=== PATIENT | female | born 1975 | race Caucasian/White ===

== ENCOUNTER 2016-07-31 05:28 | Emergency (ER) | payer OTHER ==
[2016-07-31] MEDS ORDERED: Dexamethasone IV* 4 MG/ML 5 ML VIAL (20 MG) IVPB ONE (06:56)
[2016-07-31] MEDS ORDERED: Orphenadrine Citrate IV* 30 MG/ML 2 ML VIAL IV ONE (06:57)
[2016-07-31] MEDS ORDERED: HYDROcodone/ACETAMIN 5-325 MG* 1 TAB PO ONE (06:57)
--- NOTE | 2016-07-31 07:04 | ED ---
Back Pain - HPI Summary HPI Summary: 41F presents with acute on chronic back that got worst today. She states has been getting gradual worst and today she was carrying some lights and she stated his pain became unbearable. She states she was unable to climb the stairs due to the pain. She states that she had surgery 4 years ago for a laminectomy. She states she is seeing Dr Falcon who is having her do PT which she states two weeks ago. She states the pain she is currently having is the pain that she has had before her surgery. She states that if she elevated her foot in the air it does numb. She denies any loss of bowel or bladder or saddle anaesthesia. She states that she has been alternating Tylenol and ibuprofen for pain. - History of Current Complaint Chief Complaint: EDBackInjuryPain Stated Complaint: BACK PAIN Time Seen by Provider: 07/31/16 06:33 Pain Intensity: 9 - Allergies/Home Medications Allergies/Adverse Reactions: Allergies Allergy/AdvReac Type Severity Reaction Status Date / Time No Known Allergies Allergy Verified 12/21/14 07:04 PMH/Surg Hx/FS Hx/Imm Hx Endocrine/Hematology History: Denies: Hx Diabetes Cardiovascular History: Denies: Hx Hypertension, Hx Pacemaker/ICD, Other Cardiovascular Problems/ Disorders Respiratory History: Reports: Hx Chronic Bronchitis Denies: Hx Asthma, Other Respiratory Problems/Disorders GI History: Reports: Hx Gastroesophageal Reflux Disease, Hx Ulcer Denies: Other GI Disorders History: Denies: Hx Dialysis, Hx Renal Disease Musculoskeletal History: Reports: Hx Back Problems - herniated disc Sensory History: Reports: Hx Contacts or Glasses Denies: Hx Hearing Aid Opthamlomology History: Reports: Hx Contacts or Glasses Neurological History: Reports: Hx Migraine - 2 PER MONTH, Other Neuro Impairments/Disorders - PAIN CLINIC PT Psychiatric History: Denies: Hx Panic Disorder - Cancer History Hx Chemotherapy: No Hx Radiation Therapy: No - Surgical History Surgery Procedure, Year, and Place: HYSTERECTOMY, 2013, [facility] , IVF X 4 ,LSP SURGERY L5-S1 H[place]ILAM[place]OTOMY [place] [facility] [place]PLORITORY TO OVARY AND FILLOPIAN TUBES. WIDOM TEETH Hx Anesthesia Reactions: Yes - BP DROPPED, [place] Infectious Disease History: No Infectious Disease History: Denies: Traveled Outside the [place] in Last 30 Days - Family History Known Family History: Positive: Hypertension - Social History Alcohol Use: None Substance Use Type: Reports: None Smoking Status (MU): Heavy Every Day Tobacco Smoker Type: Cigarettes Amount Used/How Often: PACK A DAY Have You Smoked in the Last Year: Yes Review of Systems Negative: Fever Negative: Chest Pain Negative: Shortness Of Breath Positive: Myalgia - back pain All Other Systems Reviewed And Are Negative: Yes Physical Exam Triage Information Reviewed: Yes Vital Signs On Initial Exam: Initial Vitals Temp Pulse Resp BP Pulse Ox 98.0 F 81 16 136/83 100 07/31/16 05:29 07/31/16 05:29 07/31/16 05:29 07/31/16 05:29 07/31/16 05:29 Vital Signs Reviewed: Yes Appearance: Positive: Well-Appearing Skin: Positive: Warm, Dry Head/Face: Positive: Normal Head/Face Inspection Eyes: Positive: Normal, Conjunctiva Clear Respiratory/Lung Sounds: Positive: Clear to Auscultation, Breath Sounds Present Cardiovascular: Positive: Normal, RRR Musculoskeletal: Positive: Limited @ - back due to pain, Other - midline tenderness of lower back, positive SLR Diagnostics - Vital Signs Vital Signs Temp Pulse Resp BP Pulse Ox 07/31/16 05:33 98.0 F 81 16 136/83 100 07/31/16 05:29 98.0 F 81 16 136/83 100 - Laboratory Lab Statement: Any lab studies that have been ordered have been reviewed, and results considered in the medical decision making process. Re-Evaluation - Re-Evaluation First Eval Re-Evaluation Time: 08:29 Change: Unchanged Comment: pain is still the same Back Pain Course/Dx - Course Course Of Treatment: 41F presents with acute on chronic back pain. nothing is different about this pain execpt for intenstity. denies any injury. occasionally has pain down legs. only numbness with leg extension. is currently seeing dr Falcon and doing PT for this pain. on exam has midline tenderness with pos SLR. discussed imaging and patient states would only like MRI which unable to do in ER setting. gave toradol, dexamethasone, norflex, and norco without relief. after dose of morphine and dilaudid patient was able to ambulate out of ED. has MRI set up with dr Falcon. sent home with prednisone , robaxin, and lidocaine patch. patient understands and agrees with plan - Diagnoses Differential Diagnosis/HQI/PQRI: Positive: Herniated Disc, Strain, Sprain Provider Diagnoses: Back pain Discharge - Discharge Plan Condition: Stable Disposition: HOME Prescriptions: Lidocaine PATCH 5%* [Lidoderm 5% Patch*] 1 patch TRANSDERM DAILY #5 patch Methocarbamol TAB* [Robaxin TAB*] 750 mg PO TID PRN #9 tab PRN Reason: Pain Methylprednisolone [Medrol Dosepak 4 MG*] 4 mg PO .SEE SUDHIR INSTRUCTION #1 packet Patient Education Materials: Back Pain (ED) Forms: *Work Release Referrals: No Primary Care Phys,NOPCP [Primary Care Provider] - Additional Instructions: Follow directions on package for Medrol pack Take muscle relaxers three times a day for 3 days Apply lidocaine patches to area for up to 12 hours in one 24 hour period Use ibuprofen or Tylenol for pain every 6 hours ice/heat area, move as much as possible Follow up with primary within 5 days Return to ED if unable to ambulate or develop any new or worsening symptoms
[2016-07-31] MEDS ORDERED: Ketorolac INJ* 30 MG/ML 1 ML VIAL IV PUSH ONE (08:05)
[2016-07-31] MEDS ORDERED: Ondansetron INJ* 2 MG/ML VIAL IV ONE (08:32)
[2016-07-31] MEDS ORDERED: Morphine INJ* 4 MG/ML 1 ML SYRINGE IV ONE (08:32)
[2016-07-31] MEDS ORDERED: HYDROmorphone* 1 MG/ML 1 ML SYR IV SLOW PU ONE (09:54)
[2016-07-31 10:56] VITALS: BP 150/86
== END 2016-07-31 10:59 | disposition home or self-care (01) ==
LOC: ED 05:28
DX: M54.9 Dorsalgia, unspecified (principal); F17.210 Nicotine dependence, cigarettes, uncomplicated; G89.29 Other chronic pain
CPT/HCPCS: 96374; 96375; 99284; J1170; J1885; J2270; J2360; J2405

== ENCOUNTER 2018-10-07 12:59 | Emergency (ER) | payer OTHER ==
[2018-10-07 13:35] LABS: ABS Basophils 0.1 10^3/ul (0-0.2); ABS Eosinophils 0.2 10^3/ul (0-0.6); ABS Lymphocytes 2.4 10^3/ul (1.0-4.8); ABS Monocytes 0.7 10^3/ul (0-0.8); ABS Neutrophils 7.6 10^3/ul (1.5-7.7); Eosinophil % 1.4 %; Hematocrit 43 % (35-47); Hemoglobin 14.7 g/dL (12.0-16.0); Mean Corpuscular HGB Conc 34 g/dL (31-36); Mean Corpuscular Hemoglobin 30 pg (27-31); Mean Corpuscular Volume 88 fL (80-97); Mean Platelet Volume 7.7 fL (7.4-10.4); Nucleated Red Blood Cells % 0.1; Platelet Count 356 10^3/uL (150-450); Red Blood Count 4.92 10^6 /uL (3.70-4.87); Red Cell Distribution Width 15 % (10-15)
[2018-10-07 13:57] LABS: INR 0.95 (0.82-1.09)
[2018-10-07 14:00] LABS: Albumin 4.1 g/dL (3.2-5.2); Albumin/Globulin Ratio 1.4 (1-3); BUN/Creatinine Ratio 11.8 (8-20); Calcium 9.5 mg/dL (8.6-10.3); EGFR African American 113.7 (>60); Total Bilirubin 0.5 mg/dL (0.2-1.0); Total Protein 7.1 g/dL (6.4-8.9)
[2018-10-07] MEDS ORDERED: Aspirin 81 mg CHEW TAB* 81 MG TAB.CHEW PO ONE (14:10)
[2018-10-07] MEDS ORDERED: Acetaminophen TAB* 325 MG PO ONE (14:10)
[2018-10-07] MEDS ORDERED: Nitroglycerin TAB 0.4 MG* 0.4 MG TAB SL ONE (14:10)
--- OUTSIDE RECORDS SUMMARY | 2018-10-07 14:44 | XMS REPORT | Continuity of Care Document ---
:1975 External Reference #:[id number] Author Name Rachael Wilkes CNM Address [address] [place] [address] Care Team Providers Name Role Phone Toyin Duffy Primary Care Physician Unavailable Payers Date Identification Numbers Payment Provider Subscriber Expires: 2013 Policy Number: [id number] [employer] Samira Watson Group Number: [id number] [address] PayID: [id number] [place] [address] Effective: 2013 Policy Number: [id number] [employer] Ppo Samira Watson Group Number: [id number] [address] PayID: [id number] [place] [address] Family History Date Family Member(s) Observation Comments Father due to Throat Cancer () Mother Osteoporosis Mother Migraine Number of Children 2 First Son A&W First Daughter A&W Number of Siblings Siblings: 1 Order Patient is the oldest of two children First Brother A&W Paternal Grandfather due to Colon Cancer () Paternal Grandmother due to Old Age () Maternal Grandfather due to Auto Accident () Maternal Grandmother due to Alzheimer's Disease () Social History Type Date Description Comments Sex Unknown Education Highest level of education completed is 12th grade Marital Status Patient is Living Situation Lives with spouse, son and daughter Diet Diet is healthy and well balanced 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 Cigarette Use Regularly smokes cigarettes Alcohol Rarely drinks alcohol Tobacco Use Start: Unknown Patient is a current smoker, smokes every day Drug Use Denies drug use Smoking Status Reviewed: 09/18/18 Patient is a current smoker, smokes every day Daily Caffeine Drinks on average 5 cups of coffee a day Exercise Type/Frequency Does not exercise currently Current Seat Belt/Car Seat Always uses a seat belt Currently Active The patient is currently sexually active Contraceptive Methods Does not currently use any method of control STD's Has high risk HPV Allergies, Adverse Reactions, Alerts Description No Known Drug Allergies Medications Active Medications SIG Qnty Indications Ordering Date Provider Macrobid 1 tab by mouth 14caps Rachael Wilkes, 09/18/2018 100mg Capsules twice a day, CNM finish entire course of treatment Bactrim DS 1 by mouth twice a 6tabs UTE Thurston 07/16/2018 800-160mg day Tablets Nexium 1 PO qd 30caps Teresa Estevez 07/15/2006 20mg Capsules Karlie Puente Cymbalta 1 po qd Unknown 90mg Zantac 75 Unknown Lexapro Unknown Eletriptan Unknown Hydrobromide Klonopin 1 twice a day as Unknown 0.5mg Tablets needed anxiety History Medications Metronidazole take one tab by 14tawily Schmidt, 06/24/2018 - 500mg Tablets mouth twice a 09/18/2018 day for 7 days Premarin take 1 tab by 90tawily Schmidt, 06/17/2018 - 0.625mg Tablets mouth every day 09/18/2018 Metrogel-Vaginal 1 applicator 70gm Malinda Meade, 06/04/2018 - 0.75% Gel every night at [facility] 06/11/2018 bedtime x 5 days Keflex 1 by mouth two 14caps Harper Huff, 05/03/2018 - 500mg Capsules times a day [facility] 05/10/2018 Macrobid 1 by mouth twice 10caps R30.0 Harper Huff, 04/29/2018 - 100mg Capsules a day [facility]- 05/03/2018 Medroxyprogesterone take 1 tablet by 30tawily Scmhidt 06/15/2013 - Acetate mouth once daily 07/13/2013 10mg Tablets for 10 days Flagyl 1 po bid x 7days 14tawily Gan 05/14/2010 - 500mg Tablets CHARLINE Burnett 05/19/2012 Lo/Ovral-28 28 day cycle 28tawily Gan 05/14/2010 - 0.3-30mg-mcg Tablets CHARLINE Burnett 05/19/2012 Prometrium 1 PO QHS 90caps Freida 04/25/2008 - 100mg Capsules MD Dimas 05/14/2010 Prozac 1 po qd 60caps Teresa Estevez 08/12/2006 - 20mg Capsules Karlie Puente 05/14/2010 Protonix 1 po qd 30tabs Freida 07/10/2006 - 20mg Tablets MD Dimas 07/15/2006 Wellbutrin SR 1 PO qd X3 Then 60tabs 296.21 Joseluis Gore 04/11/2006 - 150mg Tablets bid Karlie Kerr 11/03/2006 Tylenol W/ Codeine #3 1- PO Q 4-6 HRS 24tabs Harper Huff 03/19/2006 - 300mg;30 mg prn Pain ANP-C 11/03/2006 Tablets Zantac 1 PO bid prn 60tabs Freida 03/19/2006 - 150mg Tablets MD Dimas 11/03/2006 Terazol 7 1 applicator qhs 45gm 616.10 Joseluis Gore 11/19/2004 - 0.4% Cream x7 Karlie Kerr 03/19/2006 Macrobid 1 po bid x 7 14caps Pierce Thurman 10/09/2004 - 100mg Capsules days C.N.M. 03/19/2006 Pyridium 1 tid prn 6tabs Pierce Thurman 10/09/2004 - 200mg Tablets Bladder Pain C.N.M. 03/19/2006 Maxalt Unknown - 04/25/2008 Topamax Unknown - 05/19/2012 Vicodin Unknown - 05/19/2012 Wellbutrin Unknown - Tablets 05/14/2010 Xanax Unknown - Tablets 05/19/2012 Oxycodone HCL 1 po q4hrs prn 12caps Unknown - 5mg Capsules migrane pain 04/29/2018 Vital Signs Date Vital Result Comment 09/18/2018 1:21pm BP Systolic 114 mmHg BP Diastolic 66 mmHg Body Temperature 98.0 F Height 61.5 inches 5'1.50" Weight 161.00 lb BMI (Body Mass Index) 29.9 kg/m2 Last Menstrual Period [id number] 2 Parity 2 06/17/2018 2:53pm BP Systolic 128 mmHg BP Diastolic 80 mmHg Height 61.5 inches 5'1.50" Weight 164.00 lb BMI (Body Mass Index) 30.5 kg/m2 2 Parity 2 04/29/2018 12:37pm BP Systolic 140 mmHg BP Diastolic 88 mmHg Height 61.5 inches 5'1.50" Weight 164.00 lb BMI (Body Mass Index) 30.5 kg/m2 Last Menstrual Period 5099130 2 Parity 2 07/19/2016 12:57pm BP Systolic 134 mmHg BP Diastolic 90 mmHg Height 61.5 inches 5'1.50" Weight 187.00 lb BMI (Body Mass Index) 34.8 kg/m2 2 Parity 2 06/25/2013 3:16pm BP Systolic 138 mmHg BP Diastolic 90 mmHg Weight 186.00 lb 2 Parity 2 06/15/2013 12:57pm BP Systolic 130 mmHg BP Diastolic 88 mmHg Height 61 inches 5'1" Weight 185.00 lb BMI (Body Mass Index) 35.0 kg/m2 2 Parity 2 05/19/2013 12:57pm BP Systolic 136 mmHg BP Diastolic 88 mmHg Height 61 inches 5'1" Weight 184.00 lb BMI (Body Mass Index) 34.8 kg/m2 2 Parity 2 06/18/2010 1:53pm BP Systolic 118 mmHg BP Diastolic 68 mmHg Height 61 inches 5'1" Weight 181.00 lb BMI (Body Mass Index) 34.2 kg/m2 05/14/2010 1:00pm BP Systolic 116 mmHg BP Diastolic 66 mmHg Height 61 inches 5'1" Weight 181.00 lb BMI (Body Mass Index) 34.2 kg/m2 02/09/2009 12:43pm BP Systolic 114 mmHg BP Diastolic 70 mmHg Height 61 inches 5'1" Weight 181.00 lb BMI (Body Mass Index) 34.2 kg/m2 Last Menstrual Period [id number] 01/09/2009 1:09pm BP Systolic 124 mmHg BP Diastolic 74 mmHg Height 61 inches 5'1" Weight 183.00 lb BMI (Body Mass Index) 34.6 kg/m2 Last Menstrual Period 0 2 Months Ago 04/25/2008 10:50am BP Systolic 110 mmHg BP Diastolic 70 mmHg Height 61 inches 5'1" Weight 178.00 lb BMI (Body Mass Index) 33.6 kg/m2 2 Parity 2 11/03/2006 2:59pm BP Systolic 100 mmHg BP Diastolic 60 mmHg Height 61 inches 5'1" Weight 163.00 lb BMI (Body Mass Index) 30.8 kg/m2 03/19/2006 1:25pm BP Systolic 118 mmHg BP Diastolic 78 mmHg Height 61 inches 5'1" Weight 160.00 lb BMI (Body Mass Index) 30.2 kg/m2 Last Menstrual Period [id number] Ivf KAE: 09-28-06 Results Test Date Facility Test Result H/L Range Note Laboratory test 06/17/19 [facility] Gardnerella/Y SEE RESULT 1 finding [address] [place] [address] east: Vaginal BELOW [phone] Dna Urine Culture And 04/29/19 [facility] Urine Culture SEE RESULT 2 Sensitivities [address] [place] [address] BELOW [phone] HIV 1/2 AB 04/29/19 [facility] HIV 1 2 Nonreactive Nonreactive 3 Evaluation [address] [place] [address] Antibody [phone] Laboratory test 04/29/19 [facility] Hepatitis B Nonreactive Nonreactive 4 finding [address] [place] [address] Surface Ag [phone] Hepatitis C 04/29/19 [facility] HCV Index < 0.0 Index Antibody [address] [place] [address] [phone] Hepatitis C Antibody Nonreactive Nonreactive Laboratory 04/29/2018 [facility] Syphillis Igg Nonreactive Nonreactive 5 [place] [address] W/Reflex RPR [phone] GC/Chlamydia 04/29/2018 [facility] Chlamydia Negative [place] [address] trachomatis [phone] Rna Neisseria gonorrhoeae (GC) Rna Negative Negative Laboratory test 04/29/2018 [facility] Cytology SEE RESULT LGSIL,+HPV [address] [place] [address] BELOW [phone] Laboratory test 07/19/2016 [facility] Gardnerella/Y SEE RESULT 7 [place] [address] east: Vaginal BELOW [phone] Dna CBC Auto Diff 07/13/2013 [facility] White Blood 10.3 4.8- 10.8 [place] [address] Count 10^3/uL [phone] Red Blood Count 4.69 10^6/uL 4.0-5.4 Hemoglobin 13.2 g/dL 12.0-16.0 Hematocrit 39 % 35-47 Mean Corpuscular Volume 84 fL 80-97 Mean Corpuscular Hemoglobin 28 pg 27-31 Mean Corpuscular HGB Conc 33 g/dL 31-36 Red Cell Distribution Width 15 % 10.5-15 Platelet Count 337 10^3/uL 150-450 Mean Platelet Volume 8 um3 7.4-10.4 Abs Neutrophils 6.8 10^3/uL 1.5-7.7 Abs Lymphocytes 2.5 10^3/uL 1.0-4.8 Abs Monocytes 0.7 10^3/uL 0-0.8 Abs Eosinophils 0.2 10^3/uL 0-0.6 Abs Basophils 0.1 10^3/uL 0-0.2 Abs Nucleated RBC 0 10^3/uL Granulocyte % 65.6 % 38-83 Lymphocyte % 24.0 % Low 25-47 Monocyte % 7.2 % 1-9 Eosinophil % 2.1 % 0-6 Basophil % 1.1 % 0-2 Nucleated Red Blood Cells % 0 Laboratory test 06/25/2013 [facility] Surgical Pathology RUN DATE: 8 [place] [address] 06/29/ [phone] <SEE NOTE> Laboratory test 06/15/2013 [facility] Beta HCG < 0.60 0.0- 5.0 9 [place] [address] Quantitative IU/mL [phone] Thyroid 06/15/2013 [facility] Thyroid Stim 2.9 mIU/L 0.3-5.0 10 [place] [address] Hormone Parke [phone] Laboratory test 05/19/2013 [facility] Cytology RUN DATE: ASCUS [address] [place] [address] 05/20/ [phone] <SEE NOTE> HPV High Risk 05/19/2013 [facility] Human ECTO/[place] [address] Papillomavirus [phone] Source HPV High Risk Type 16, PCR Negative Negative HPV High Risk Type 18, PCR Negative Negative HPV Other Risk types Negative Negative 12 Genital 05/14/2010 [facility] Genital PRESUMPTIVE AMANDEEP 13 [place] [address] Culture <SEE NOTE> [phone] Genital Culture NORMAL MOE 14 GC/Chlamydia Aptima 05/14/2010 [facility] Chlamydia N [address] [place] [address] Trachomatis Rna [phone] Laboratory test 05/14/2010 [facility] Cytology -------- [address] [place] [address] -------- [phone] <SEE NOTE> GC (N. Gonorrhoeae) Rna N 17 Laboratory test 02/09/2009 [facility] Cytology <SEE 18 [place] [address] NOTE> [phone] Laboratory test 04/25/2008 [facility] TSH 2.66 MIU/ML 0.34- [place] [address] 5.60 [phone] Thyroxine Free 0.83 NG/ML 0.61-1.24 19 Laboratory test 08/26/2006 [facility] Genital For FINAL: [address] [place] [address] GRP B Strep NEGATIVE [phone] Only <SEE NOTE> CBC With Manual 06/10/2006 [facility] White Blood 13.7 CUMM High 4.8-1 [place] [address] Count 0.8 [phone] Absolute Neutrophil Count 10.0 Anisocytosis SLIGHT Hematocrit 36 % 35-47 Hemoglobin 12.6 g/dL 12.0-16.0 Eosenophil 3 % 0-6 Lymphocyte 20 % 5-47 Mean Corpuscular HGB Cone 35 g/dL 32-36 Mean Corpuscular Hemoglob 31 pg 27-31 Mean Corpuscular Volume 89 um3 79-97 Monocyte 4 % 0-13 Mean Platelet Volume 8.9 um3 7.4-10.4 Platelet Count 292 CUMM 150-450 Polysegmented Neutrophil 73 % 38-83 Red Cell Count 4.09 CUMM Low 4.2-5.4 Redcell Distribution WDTH 13 % 10.5-15 Laboratory 03/19/2006 [facility] Cytology 21 [place] [address] <SEE NOTE> [phone] GC/ZHL On 03/19/2006 [facility] CHL On Thin NEGATIVE Negative 22 [place] [address] Prep Vial [phone] GC On Thin Prep Vial NEGATIVE Negative 23 1 03/19/2006 [facility] Hepatitis [place] [address] Surface Ag [phone] Rubella Screen IMMUNE Immune White Blood Count 16.1 CUMM High 4.8-10.8 Abs Basophils 0 0-0.2 Abs Eosinophils 0.2 0-0.6 Absolute Neutrophil Count 12.5 High 1.5-7.7 Abs Lymphs 2.8 1.0-4.8 Abs Mononuclear 0.7 0-0.8 Basophil % 0.2 % 0-2 Hematocrit 39 % 35-47 24 Hemoglobin 12.9 g/dL 12.0-16.0 Eosinophil % 1.0 % 0-6 Gran % 77.3 % 38-83 Lymph % 17.3 % Low 20-45 Mean Corpuscular HGB Cone 33 g/dL 32-36 Mean Corpuscular Hemoglob 31 pg 27-31 Mean Corpuscular Volume 94 um3 79-97 Mean Platelet Volume 9.1 um3 7.4-10.4 Mononuclear % 4.2 % 1-9 Platelet Count 296 CUMM 150-450 Red Cell Count 4.15 CUMM Low 4.2-5.4 Redcell Distribution WDTH 14 % 10.5-15 RPR NON REACTIVE Nonreactive 1 TS 03/19/2006 [facility] Patient Blood Type O POSITIVE [place], [place] 3565183 [phone] Antibody Screen NEGATIVE Laboratory test 03/19/2006 [facility] TSH 1.23 MIU/ML 0.34- 5.60 finding [place], [place] [address]55 [phone] Urine Culture Sensitivi NG 25 Vad 03/19/2006 [facility] Vad Final NONREACTIVE Nonreactive [address] [place], [place] [address]06 [phone] Gram Neg Jermain 10/11/2004 [facility] Ampicillin <=2 [place] [address] [phone] Ampicillin/Sublactam <=2 S Amikacin <=2 S Aztreonam <=1 S Ciprofloxacin <=0.25 S Cefotetan <=4 S Ceftriaxone <=1 S Cefazolin <=4 S Cefepime <=1 S Nitrofurantoin <=16 S Gentamicin <=1 S Imipenem <=1 S Levofloxacin <=0.25 S Piperacillin <=4 S Cefuroxime 4 S Trimeth-Sulfa <=20 S Ceftazidime <=1 S Ticarcillin-Clav <=8 S Tobramycin <=1 S Piperacillin/Tazobactam <=4 S Urine Culture 10/09/2004 [facility] Urine Culture MANY [address] [place] [address] Sensitivi [ESCHERICHI [phone] <SEE NOTE> Laboratory 12/07/2003 [facility] TSH 1.16 MIU/ML 0.34-5.60 [place] [address] [phone] Laboratory 07/07/2002 [facility] Genital For NEGATIVE [place] [address] GRP B Strep ANNIE <SEE NOTE> [phone] Only Laboratory 05/17/2002 [facility] Glucose 1 HR 116 mg/dL 70- 160 [place] [address] Post Prandial [phone] Laboratory 03/24/2002 [facility] Glucose 1 HR 93 mg/dL 70- 160 [place] [address] Post Prandial [phone] GC/Chlamydia 01/13/2002 [facility] Chlamydia By NEGATIVE Negative 28 [place] [address] Dna Probe [phone] GC By Dna Probe NEGATIVE Negative 29 1 SEE RESULT BELOW Name: SAMIRA WATSON : [address]: Sayda Schmidt MD Acct: [id number] Unit: [id number] AGE: 43 Location: [facility] Re06/17/18 SEX: F Status: REG REF SPEC: [id number] BHAVNA: 06/17/18-[address]: Sayda Schmidt MD REQ: [id number] RECD: 06/18/18-0108 STATUS: COMP _ SOURCE: VAGINAL SPDESC: ORDERED: Amandeep,Yeast DNA, Trich DNA COMMENTS: [id number] Would you like to order Trichomonas Vaginalis testing? Yes Procedure Result Reported Site Gardnerella/Yeast: Vaginal DNA Final 06/19/18- 1249 ML Organism 1 Negative Arin Organism 2 POSITIVE GARDNERELLA The presence of G. vaginalis, although suggestive, is not diagnostic for bacterial vaginosis. Results should be interpreted in conjuction with other clinical and laboratory data available. Women with vaginal discharge should be evaluated for risk factors of cervicitis and pelvic inflammatory disease, toxic shock syndrome (S.aureus), and if present, evaluated for organisms not included in this assay such as N. gonorrhoeae, C. trachomatis, Mobiluncus, Mycoplasma and/or Prevotella. Mixed infections may occur. The performance of this test on patient specimens collected during or immediately after antimicrobial therapy is unknown. The presence or absence of Arin species, or G. vaginalis cannot be used as a test for therapeutic success or failure. Trichomonas: Vaginal DNA Probe Final 06/19/18- 1249 ML Organism 1 Negative Trichomonas CONTINUED ON NEXT PAGE DEPARTMENT OF PATHOLOGY, [address] [place] [address] Davide Vincent M.D. Director [facility] # [id number] Patient: SAMIRA WATSON Yamilex [id number] (Continued) Specimen: [id number] Collected: 06/17/18-1544 Received: 06/18/18-1307 (Continued) Procedure Result Reported Site Trichomonas: Vaginal DNA Probe Final (continued) 06/19/18- 1249 The presence or absence of T. vaginalis cannot be used as a test for therapeutic success or failure. * - Main Lab . END OF REPORT DEPARTMENT OF PATHOLOGY, [address] [place] [address] Davide Vincent M.D. Director [facility] # [id number] 2 SEE RESULT BELOW Name: RASHAWNSAMIRA L : [address]: Harper Cardoso Acct: [id number] Unit: [id number] AGE: 43 Location: [facility] Re04/29/18 SEX: F Status: REG REF SPEC: [id number] BHAVNA: 04/29/[address]: Harper Cardoso REQ: [id number] RECD: 04/29/18 STATUS: COMP _ SOURCE: URINE [facility]: ORDERED: Urine Culture COMMENTS: [id number] Urine Source: Random Procedure Result Reported Site Urine Culture Final 05/01/18922 ML Organism 1 KLEBSIELLA PNEUMONIAE [place] Count 10-25,000 (Moderate) CFU/ML 1. KLEBSIELLA PNEUMONIAE [facility] RX --------- ------ Ampicillin >=32 R Cefazolin <=4 S Cefepime <=1 S Ceftriaxone <=1 S Ciprofloxacin <=0.25 S Gentamicin <=1 S Levofloxacin <=0.12 S Meropenem <=0.25 S Nitrofurantoin 64 I Tetracycline <=1 S Pipercillin/Tazobactam <=4 S Trimethoprim/Sulfamethoxazole <=20 S Amoxicillin/Clavulanic Acid <=2 S Aztreonam <=1 S Contact the Microbiology Department for any additional antibiotic reporting. * - [facility] . END OF REPORT DEPARTMENT OF PATHOLOGY, [address] [place] [address] Davide Vincent M.D. Director [facility] # [id number] 3 It is recognized that currently available assays for the detection of antibodies to HIV-1 and/or HIV-2 may not detect all infected individuals. HIV antibodies may be undetectable in some stages of the infection and in some clinical conditions. The performance of this assay has not been established for populations of infants or children. Assayed by Chemiluminescence Microparticle Immunoassay on the Siemens Advia Centaur CP. Values obtained with different methods or kits cannot be used interchangeably.The diagnostic specificity of the ADVIA Centaur 1/O/2 Enhanced assay in the low risk population was 99.90% (6052/6058) with a 95% confidence interval of 99.78 to 99.96%. 4 [id number] 5 Warning: A positive result is not useful for establishing a diagnosis of syphilis. In most situations, such a result may reflect a prior treated infection; a negative result can exclude a diagnosis of syphilis except for incubating or early primary disease. 6 SEE RESULT BELOW Name: SAMIRA WATSON : [address]: Harper Cardoso Acct: [id number] Unit: [id number] AGE: 43 Location: [facility] Re04/29/18 SEX: F Status: REG REF SPEC: [id number] BHAVNA: 04/29/18-[address]: Harper Cardoso REQ: [id number] RECD: 04/29/18 STATUS: SOUT _ ORDERED: TP IMAGE ANALYS, RADIOLOGICAL TECHNICIAN PHYS INTERP, HPV/Thin Prep COMMENTS: [id number] EPITHELIAL CELL ABNORMALITIES Low grade squamous intraepithelial lesion (LSIL) Date Time Test Result Flag (u) Normal Range 04/29/18 1306 @ HPV RNA POSITIVE An Negative @ @ The high-risk HPV types detected by the assay include: 16, @ 18, 31, 33, 35, 39, 45, 51, 52, 56, 58, 59, 66, and 68. A. Ectocervical/Endocervical Specimen Adequacy: Satisfactory of evaluation Transformation zone component identified Patient Information: HPV: High risk HPV RNA testing regardless of pap results. Actual Specimen Date: 04/29/18 LMP If Unknown: 2013 Date of Last Specimen: 05/19/13 Hysterectomy?: Y Previous Abnormal Pap Smears?:Y If Yes, enter Diagnosis: Atypical Squamous cells of uncertain significance. Signed by and Reported on: Alanis Mari MD 04/30/18 1722 This Pap test was evaluated with the assistance of the [employer] Test Imaging System. Due to cytologic findings at the middleware engineer microscope, comprehensive manual rescreening by a Supervisor Phosphatic Fertilizer may be required. The Pap Smear is a screening test designed to aid in the detection of premalignant and malignant conditions of the uterine cervix. It is not a diagnostic procedure and should not be used as the sole means of detecting cervical cancer. Both false- positive and false- negative reports do occur. Depending on your risk status, a Pap smear should be obtained and evaluated every 1-3 years. END OF REPORT DEPARTMENT OF PATHOLOGY, [address] [place] [address] Dvaide Vincent M.D. Director [facility] # [id number] 7 SEE RESULT BELOW Name: RASHAWNSAMIRA L : [address]: Isi Staff,Doctor Acct: [id number] Unit: [id number] AGE: 41 Location: [facility] Re07/19/16 SEX: F Status: REG REF SPEC: [id number] BHAVNA: 07/19/[address]: JERRI MEDRANO [facility] REQ: [id number] RECD: 07/19/16 STATUS: COMP _ SOURCE: VAGINAL SPDESC: ORDERED: Amandeep,Yeast DNA, Trich DNA COMMENTS: [id number] Procedure Result Reported Site Gardnerella/Yeast: Vaginal DNA Final 07/20/16- 1 ML Organism 1 Negative Gardnerella Organism 2 Negative Arin The presence of G. vaginalis, although suggestive, is not diagnostic for bacterial vaginosis. Results should be interpreted in conjuction with other clinical and laboratory data available. Women with vaginal discharge should be evaluated for risk factors of cervicitis and pelvic inflammatory disease, toxic shock syndrome (S.aureus), and if present, evaluated for organisms not included in this assay such as N. gonorrhoeae, C. trachomatis, Mobiluncus, Mycoplasma and/or Prevotella. Mixed infections may occur. The performance of this test on patient specimens collected during or immediately after antimicrobial therapy is unknown. The presence or absence of Arin species, or G. vaginalis cannot be used as a test for therapeutic success or failure. Trichomonas: Vaginal DNA Probe Final 07/20/16- 1330 ML Organism 1 Negative Trichomonas CONTINUED ON NEXT PAGE * ML=Testing performed at Main Lab DEPARTMENT OF PATHOLOGY, [address] [place] [address] Davide Vincent M.D. Director [facility] # [id number] Patient: SAMIRA WATSON Yamilex [id number] (Continued) Specimen: [id number] Collected: 07/19/16-1346 Received: 07/19/16-161 (Continued) Procedure Result Reported Site Trichomonas: Vaginal DNA Probe Final (continued) 04/01/17- 1331 The presence or absence of T. vaginalis cannot be used as a test for therapeutic success or failure. * ML - MAIN LAB (PSC[facility]) . END OF REPORT * ML=Testing performed at Main Lab DEPARTMENT OF PATHOLOGY, [facility] [employer] [place] [address] Davide Vincent M.D. Director [place] # [id number] RUN DATE: 06/29/13 [facility] LAB LIVE PAGE 1 RUN TIME: 1516 [facility] [employer] [place], [place] [address] Specimen Inquiry Name: SAMIRA WATSON Yamilex : [address]: Sayda Schmidt MD Acct: [id number] Unit: [id number] AGE: 38 Location: [facility] Re06/25/13 SEX: F Status: REG REF SPEC: [id number] BHAVNA: 06/25/13-[address]: Sayda Schmidt MD REQ: [id number] RECD: 06/28/13 STATUS: SOUT _ ORDERED: LEVEL IV FINAL DIAGNOSIS Uterus, endometrium, biopsy: A. Simple hyperplasia with atypia. B. Focal glandular and stromal breakdown. C. No significant cytologic atypia or architectural features of neoplasia noted. COMMENTS: Appropriate therapeutic intervention is warranted. Dr. Mari has reviewed this case and concurs. PRE-OPERATIVE DIAGNOSIS Thickened endometrium. GROSS DESCRIPTION The specimen is received in formalin labeled Samira Watson, No Source but the accompanying requisition indicates Endometrial Biopsy, and consists of a 2.3 x 2.0 x 0.5 cm. aggregate of multiple reid-white irregular soft tissue fragments admixed with moderate red- brown blood clot. Submitted entirely, one cassette. Signed (signature on file) Davide Vincent MD 1516 END OF REPORT * ML=Testing performed at Main Lab DEPARTMENT OF PATHOLOGY, [address] [place] [address] Davide Vincent M.D. Director [facility] Permit #[id number] <5.0 Negative 5.0 - 25.0 Indeterminate >25.0 Positive 10 Test Performed by: [address] [address] Human Factors Scientist: Darryl Boyle III, M.D. 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 Results will be reported separately. A. Ectocervical/Endocervical Specimen Adequacy: Satisfactory of evaluation Transformation zone component identified Patient Information: HPV: High risk HPV DNA testing regardless of pap results. Actual Specimen Date: 05/19/13 LMP If Unknown: unknown Date of Last Specimen: 05/14/10 Signed (signature on file) Alanis Mari MD 1419 This Pap test was evaluated with the assistance of the ThinPrep Test Imaging System. Due to cytologic findings at the middleware engineer microscope, comprehensive manual rescreening by a Supervisor Phosphatic Fertilizer may be required. The Pap Smear is a screening test designed to aid in the detection of premalignant and malignant conditions of the uterine cervix. It is not a diagnostic procedure and should not be used as the sole means of detecting cervical cancer. Both false- positive and false- negative reports do occur. Depending on your risk status, a Pap smear shoudl be obtained and evaluated every 1-3 years. END OF REPORT * ML=Testing performed at [facility] DEPARTMENT OF PATHOLOGY, [address] [place] [address] Davide Vincent M.D. Director [facility] Permit #[id number] The following Other High Risk HPV types were not detected: 31, 33, 35, 39, 45, 51, 52, 56, 58, 59, 66, and 68 Test Performed by: [place] [address] Human Factors Scientist: Darryl Boyle III, M.D. 13 PRESUMPTIVE AMANDEEP. VAGINALIS MOD^MODERATE^QTY 14 F^FEW^QTY 15 NEGATIVE FOR CHLAMYDIA TRACHOMATIS rRNA A negative result does not preclude the presence of a C.trachomatis or N.gonorrhoeae infection because results are dependent on adequate specimen collection, absence of inhibitors, and sufficient rRNA to be detected. Test results may be affected by improper specimen collection, improper specimen storage, technical error, or specimen mixup. 16 ---- RUN DATE: 05/15/10 [facility] LIVE PAGE 1 RUN TIME: 1100 Specimen Inquiry RUN USER: INTERFACE -- Name: SAMIRA WATSON Status: REG REF Re05/14/10 Age/Sex: 35/F Unit#: [id number] Location: [facility] : [birth year] -- Specimen: [id number] Spec Date: 05/14/[address] [facility] [address]: Freida knight NP Spec Type: CYTOLOGY Received: 05/15/10-0850 Copies to: SOURCE ECTOCERVICAL/ENDOCERVICAL Thin Prep with Reflex HPV Test PATIENT INFORMATION ACTUAL COLLECTION DATE: 05/14/10 PREVIOUS ABNORMAL PAP SMEARS No PATIENT HISTORY: Last menstrual period 04/2010 ADEQUACY OF SPECIMEN Satisfactory for evaluation * Transformation zone component identified * Predominance of red blood cells * See note. DIAGNOSIS NEGATIVE FOR INTRAEPITHELIAL LESION OR MALIGNANCY * NOTE Vial reprocessed due to excess blood and scant cellularity on first slide. Reprocessing successful. This Pap test was evaluated with the assistance of the ThinPrep Pap Test Imaging System. The Pap Smear is a screening test designed to aid in the detection of premalign ant and malignant conditions of the uterine cervix. It is not a diagnostic procedure a nd should not be used as the sole means of detecting cervical cancer. Both false- positiv e and false-negative reports do occur. Depending on your risk status, a Pap smear preeti uld be obtained and evaluated every one to three years. Final Interpretation electronically signed by: Geoff DIAZ(ASC) 05/15/10 110 0 -- DEPARTMENT OF PATHOLOGY, [address] [place] [address] [facility] Permit #[id number] Davide Vincent M.D. Director Yaakov Khan M.D. Stem Setter Dir rosmery -- 17 NEGATIVE FOR NEISSERIA GONORRHOEAE rRNA A negative result does not preclude the presence of a C.trachomatis or N.gonorrhoeae infection because results are dependent on adequate specimen collection, absence of inhibitors, and sufficient rRNA to be detected. Test results may be affected by improper specimen collection, improper specimen storage, technical error, or specimen mixup. 18 ---- RUN DATE: 02/10/09 [facility] NMI LIVE PAGE 1 RUN TIME: 1615 Specimen Inquiry RUN USER: INTERFACE -- Name: SAMIRA WATSON Status: REG REF Re02/09/09 Age/Sex: 33/F Unit#: [id number] Location: [facility]. : [birth year] -- Specimen: [id number] SOUT Spec Date: 02/09/[address]: Kyaw UNGER Spec Type: CYTOLOGY Received: 02/10/09-1338 Copies to: SOURCE ECTOCERVICAL/ENDOCERVICAL Thin Prep with Reflex HPV Test PATIENT INFORMATION ACTUAL COLLECTION DATE: 02/09/09 ? No LAST MENSTRUAL PERIOD: 02/01/09 DATE OF PRIOR SPECIMEN: 03/19/06 ADEQUACY OF SPECIMEN Satisfactory for evaluation * Transformation zone component identified * DIAGNOSIS NEGATIVE FOR INTRAEPITHELIAL LESION OR MALIGNANCY * This Pap test was evaluated with the assistance of the ThinPrep Pap Test Imaging System. The Pap Smear is a screening test designed to aid in the detection of premalign ant and malignant conditions of the uterine cervix. It is not a diagnostic procedure a nd should not be used as the sole means of detecting cervical cancer. Both false- positiv e and false-negative reports do occur. Depending on your risk status, a Pap smear preeti uld be obtained and evaluated every one to three years. Initial evaluation performed by Danita JETER([facility]) 02/10/09 Final Interpretation electronically signed by: Danita JETER([facility]) 02/10/09 1615 -- -- DEPARTMENT OF PATHOLOGY, [address] [place] [address] [facility] Permit #[id number] Davide Vincent M.D. Director Yaakov Khan M.D. Stem Setter Dir rosmery -- 19 PLEASE NOTE NEW REFERENCE RANGES. 20 FINAL: NEGATIVE FOR GROUP B STREPTOCOCCUS 21 ---- RUN DATE: 03/24/06 [facility] NMI LIVE PAGE 1 RUN TIME: 840 Specimen Inquiry RUN USER: INTERFACE [id number] SAMIRA WATSON <REG REF 03/19> ([id number]) Harper Salcedo CNP. -- Specimen: [id number] SOUT Spec Date: 03/19/[address]: Harper Huff Spec Type: CYTOLOGY Received: 03/20/06-1118 Copies to: SOURCE ECTOCERVICAL/ENDOCERVICAL Thin Prep with Reflex HPV Test PATIENT INFORMATION ACTUAL COLLECTION DATE: 03/19/06 ? YES PREVIOUS CYTOLOGY/SURGICAL SPECIMEN #: UNKNOWN PATIENT HISTORY: Elsewhere ADEQUACY OF SPECIMEN Satisfactory for evaluation * Transformation zone component identified * DIAGNOSIS NEGATIVE FOR INTRAEPITHELIAL LESION OR MALIGNANCY * The Pap Smear is a screening test designed to aid in the detection of premalign ant and malignant conditions of the uterine cervix. It is not a diagnostic procedure an d should not be used as the sole means of detecting cervical cancer. Both false-positive and false-negative reports do occur. Depending on your risk status, a Pap smear preeti uld be obtained and evaluated every one to three years. Signed Geoff DIAZ CT(ASCP) 03/21/06 (p reliminary) Electronically signed Geoff DIAZ CT(ASCP) 03/24/06 -- -- DEPARTMENT OF PATHOLOGY, [address] [place] [address] [facility] Permit #[id number] Bryce Bobby II, M.D. Director Davide Vincent M.D. Stem Setter D irector -- 22 . A negative result does not preclude the presence of a C.trachomatis or N.gonorrhoeae infection because results are dependent on adequate specimen collection, absence of inhibitors, and sufficient rRNA to be detected. Test results may be affected by improper specimen collection, improper specimen storage, technical error, or specimen mixup. . 23 . A negative result does not preclude the presence of a C.trachomatis or N.gonorrhoeae infection because results are dependent on adequate specimen collection, absence of inhibitors, and sufficient rRNA to be detected. Test results may be affected by improper specimen collection, improper specimen storage, technical error, or specimen mixup. . 24 Lymphopenia % 25 FINAL: NO GROWTH DAY 2 (<1,000 CFU/mL) 26 FINAL INTERPRETATION: No HIV antibody is detected. . This information has been disclosed to you from confidential records which are protected by [place] State law. State law prohibits you from making further disclosure of this information without the specific written consent of the person to whom it pertains, or as otherwise permitted by law. Any unauthorized further disclosure in violation of state law may result in a fine or usp sentence or both. General authorization for the release of medical or other information is not, except in limited circumstances set forth in Part 63, Title 10, of [facility], sufficient authorization for further disclosure. Disclosure of confidential HIV information that occurs as the result of a general authorization for the release of medical or other information will be in violation of the state law and may result in a fine or a usp sentence. . 27 MANY [ESCHERICHIA COLI] ESCHERICHIA COLI 28 * This method is approved for detection of Chlamydia trachomatis in Endocervical, Male Urethral and Conjunctival Specimens only. POSITIVE RESULT IN A POPULATION WITH LOW PREVALENCE OF DISEASE SHOULD BE INTERPRETED PRESUMPTIVE; INTERPRET RESULTS IN LIGHT OF HISTORY PHYSICAL FINDINGS . 29 * This method is approved for detection of Neisseria Gonnorrhoeae in Endocervical and Male Urethral Specimens only. POSITIVE RESULT IN A POPULATION WITH LOW PREVALENCE OF DISEASE SHOULD BE INTERPRETED PRESUMPTIVE; INTERPRET RESULTS IN LIGHT OF HISTORY PHYSICAL FINDINGS. . Procedures Date Code Description Status 06/17/2018 32157 Colposcopy Of Vagina Or Cervix Completed 06/25/2013 39104 Biopsy Endometrial W/O Cervical Dilation Completed 06/15/2013 33863 Echography Transvaginal Completed 06/18/2010 86057 Echography Transvaginal Completed 11/03/2006 49058 Care Only Completed 09/22/2006 58935 Obstetric Care Routine Completed 08/07/2006 04220 Non-Stress Test Completed 05/14/2006 33033 Echography Uterus Complete Completed 12/31/2004 79370 Echography Transvaginal Completed 04/24/2004 93940 Echography Pelvic Limited Or Follow-Up Completed Encounters Type Date Location Provider Dx Diagnosis Office Visit 09/18/2018 [facility] Rachael Wilkes CNM R30.0 Dysuria 1:20p Office Visit 04/29/2018 [facility] PAT Armendariz Z01.419 Encntr for geography faculty member exam 1:00p (general) (routine) w/o abn findings Z11.3 Encntr screen for infections w sexl mode of transmiss R30.0 Dysuria Office Visit 07/19/2016 1:00p [facility] Jerri Marcela, N76.0 Acute vaginitis CNM Office Visit 06/25/2013 3:30p [facility] Sayda Schmidt, 626.2 Menstruation MD Excessive Or Frequent Office Visit 06/15/2013 1:20p [facility] Harper Huff, 626.4 Irregular Menstrual ANP-C Cycle Office Visit 05/19/2013 1:20p [facility] Harper Huff, V72.31 Routine Supervisor Specialty Plant ANP-C Examination V76.2 Screening Malignant Neoplasm Cervix 626.4 Irregular Menstrual Cycle Office Visit 06/18/2010 1:40p [facility] Freida Burnett, 626.4 Irregular CNM Menstrual Cycle V25.09 Contraceptive Management Other Office Visit 05/14/2010 1:00p [facility] Office Freida Burnett V76.2 Screening CNM Malignant Neoplasm Cervix V74.5 Screening Examination Venereal Disease 626.4 Irregular Menstrual Cycle V72.31 Routine Supervisor Specialty Plant Examination V76.41 Screening Malignant Neoplasm Rectum Office Visit 02/09/2009 1:00p [facility] Office Kyaw Sharma CNM V76.2 Screening Malignant Neoplasm Cervix 626.4 Irregular Menstrual Cycle 256.4 Polycystic Ovaries V72.31 Routine Supervisor Specialty Plant Examination 788.30 Incontinence Urinary Unspec Office Visit 01/09/2009 1:20p [facility] Office Kyaw Sharma CNM 112.1 Candidiasis The Vulva & Vagina Office Visit 04/25/2008 10:40a [facility] Office Freida Cochran, 626.4 Irregular Menstrual MD Cycle Office Visit 08/12/2006 1:00p [facility] Office Joselusi Kerr, V22.1 Supervison Of Karlie Normal 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 Office Visit 04/11/2006 12:00p [facility] Joseluis Kerr, V22.1 Supervison Of Karlie Normal Other 296.21 Depressive Disorder Major Single Episode Mild Office Visit 11/19/2004 9:00a [facility] Office Joseluis Gore 112.9 Candidiasis Unspec Karlie Kerr Site 616.10 Vaginitis & Vulvovaginitis Unspec 620.2 Ovarian Cyst Other & Unspec Office Visit 04/24/2004 11:15a [facility] Harper Huff, 625.9 Female Genital ANP-C Organs Unspec Symptoms V72.40 Test Unconfirm Office Visit 02/07/2004 3:30p [facility] Joseluis Gore V72.31 Routine Supervisor Specialty Plant Karlie Kerr Examination Office Visit 12/07/2003 11:00a [facility] Office Harper Huff, 626.4 Irregular Menstrual ANP-C Cycle V77.0 Screening Thyroid Disorders V78.0 Screening Iron Deficiency Anemia V72.4 Examination Or Test Unconfirmed Office Visit 02/03/2003 2:15p [facility] Office Joseluis Gore V72.3 Examination Karlie Kerr Gynecological V72.4 Examination Or Test Unconfirmed Plan of Treatment 07/19/2016 - Jerri Medrano, CNMN76.0 Acute vaginitisComments:Collect Affirm today, will contact with treatment pending resultWe discussed STI testing due to new partners, pt plans to seek elsewhere for personal reasonsEncouraged scheduling Annual examFU PRN
--- NOTE | 2018-10-07 15:49 | ED ---
HPI Chest Pain - HPI Summary HPI Summary: This pt is a 43 y/o F that is presenting to [facility] with a CC of left anterior CP that radiates into her L axillary starting Friday10/04/18. She usually takes anxiety medication when she has CP but the medication has been unhelpful. She rates the pain as a 6-7/10 and is described as a griping pressure. She stated that her friends have noticed that her toes will turn purple when she sits in a certain position. She reports that she was scared to come in earlier this week, but decided that she could not wait any longer. She reports being diaphoretic during hot flashes and woke up nauseous with a migraine this morning. She denies V/D, fevers, chills, abdominal pain, and urinary issues. She has no alleviating or aggravating factors. She has a PMHx of anxiety. - History of Current Complaint Chief Complaint: EDChestPainROMI Time Seen by Provider: 10/07/18 13:10 Hx Obtained From: Patient Onset/Duration: Started Days Ago - 10/04/18, Still Present Timing: Constant Initial Severity: Moderate Current Severity: Moderate Pain Intensity: 7 Pain Scale Used: 0-10 Numeric Chest Pain Location: Left Anterior Chest Pain Radiates: Yes Chest Pain Radiates To:: Other - aL axillary Character: Pressure/Squeezing Aggravating Factor(s): Nothing Alleviating Factor(s): Nothing Associated Signs and Symptoms: Positive: Negative - V/D, fevers, chills, abdominal pain, and urinary issues., Chest Pain - L anterior that radiates to her L axillary, Headaches - migraine, Diaphoresis, Nausea, Other: - hot flashes - Allergy/Home Medications Allergies/Adverse Reactions: Allergies Allergy/AdvReac Type Severity Reaction Status Date / Time No Known Allergies Allergy Verified 10/07/18 13:06 Home Medications: Home Medications Escitalopram * [Lexapro 10 mg (NF)] 10 mg PO DAILY 10/07/18 [History Confirmed 10/07/18] Omeprazole CAP (NF) [Prilosec CAP* 20 MG] 20 mg PO DAILY 10/07/18 [History Confirmed 10/07/18] clonazePAM TAB(*) [KlonoPIN TAB(*)] 0.5 mg PO BID PRN 10/07/18 [History Confirmed 10/07/18] PMH/Surg Hx/FS Hx/Imm Hx Previously Healthy: No Endocrine/Hematology History: Denies: Hx Diabetes Cardiovascular History: Denies: Hx Hypertension, Hx Pacemaker/ICD, Other Cardiovascular Problems/ Disorders Respiratory History: Reports: Hx Chronic Bronchitis Denies: Hx Asthma, Other Respiratory Problems/Disorders GI History: Reports: Hx Gastroesophageal Reflux Disease, Hx Ulcer Denies: Other GI Disorders History: Denies: Hx Dialysis, Hx Renal Disease Musculoskeletal History: Reports: Hx Back Problems - herniated disc Sensory History: Reports: Hx Contacts or Glasses Denies: Hx Hearing Aid Opthamlomology History: Reports: Hx Contacts or Glasses Neurological History: Reports: Hx Migraine - 2 PER MONTH, Other Neuro Impairments/Disorders - PAIN CLINIC PT Psychiatric History: Denies: Hx Panic Disorder - Cancer History Hx Chemotherapy: No Hx Radiation Therapy: No - Surgical History Surgery Procedure, Year, and Place: HYSTERECTOMY, 2013, [facility]; LSP SURGERY L5-S1 HEMILAMINOTOMY & DISKECTOMY 11/18/14 AT [facility]; EXPLORATORY TO OVARY AND FALLOPIAN TUBES;. WIDOM TEETH; Hx Anesthesia Reactions: Yes - BP DROPPED, [place] Infectious Disease History: No Infectious Disease History: Denies: Traveled Outside the [place] in Last 30 Days - Family History Known Family History: Positive: Hypertension - Social History Alcohol Use: Daily Hx Substance Use: Yes Substance Use Type: Reports: Marijuana Hx Tobacco Use: Yes Smoking Status (MU): Heavy Every Day Tobacco Smoker Type: Cigarettes Amount Used/How Often: PACK A DAY Have You Smoked in the Last Year: Yes Review of Systems Positive: Skin Diaphoresis, Other - hot flashes. Negative: Fever, Chills Positive: Chest Pain - L anterior that radiates into her L axillary Positive: Nausea. Negative: Abdominal Pain, Vomiting, Diarrhea Genitourinary: Negative Positive: Headache - migraine All Other Systems Reviewed And Are Negative: Yes Physical Exam - Summary Physical Exam Summary: Constitutional: Well-developed, Well-nourished, Alert. (-) Distressed Skin: Warm, Dry HENT: Normocephalic; Atraumatic Eyes: Conjunctiva normal Neck: Musculoskeletal ROM normal neck. (-) JVD, (-) Stridor, (-) Tracheal deviation Cardio: Rhythm regular, rate normal, Heart sounds normal; Intact distal pulses; The pedal pulses are 2+ and symmetric. Radial pulses are 2+ and symmetric. (-) Murmur Pulmonary/Chest wall: Effort normal. (-) Respiratory distress, (-) Wheezes, (-) Rales Abd: Soft, (-) tenderness, (-) Distension, (-) Guarding, (-) Rebound Musculoskeletal: mild chronic mottling in her lower extremities with no edema and atraumatic Lymph: (-) Cervical adenopathy Neuro: Alert, Oriented x3 Psych: Mood and affect Normal Triage Information Reviewed: Yes Vital Signs On Initial Exam: Initial Vitals Temp Pulse Resp BP Pulse Ox 97.4 F 71 16 145/96 100 10/07/18 13:03 10/07/18 13:03 10/07/18 13:03 10/07/18 13:03 10/07/18 13:03 Vital Signs Reviewed: Yes Diagnostics - Vital Signs Vital Signs Temp Pulse Resp BP Pulse Ox 10/07/18 14:31 98.1 F 59 16 123/72 100 10/07/18 13:03 97.4 F 71 16 145/96 100 - Laboratory Lab Results: Lab Results 10/07/18 10/07/18 10/07/18 Range/Units 13:27 13:27 13:27 WBC 11.0 H (3.5-10.8) 10^3/uL RBC 4.92 H (3.70-4.87) 10^6 /uL Hgb 14.7 (12.0-16.0) g/dL Hct 43 (35-47) % MCV 88 (80-97) fL MCH 30 (27-31) pg MCHC 34 (31-36) g/dL RDW 15 (10-15) % Plt Count 356 (150-450) 10^3/uL MPV 7.7 (7.4-10.4) fL Neut % (Auto) 68.9 % Lymph % (Auto) 22.0 % Stanley % (Auto) 6.7 % Eos % (Auto) 1.4 % Baso % (Auto) 1.0 % Absolute Neuts (auto) 7.6 (1.5-7.7) 10^3/ul Absolute Lymphs (auto) 2.4 (1.0-4.8) 10^3/ul Absolute Monos (auto) 0.7 (0-0.8) 10^3/ul Absolute Eos (auto) 0.2 (0-0.6) 10^3/ul Absolute Basos (auto) 0.1 (0-0.2) 10^3/ul Absolute Nucleated RBC 0.0 10^3/ul Nucleated RBC % 0.1 INR (Anticoag Therapy) 0.95 (0.82-1.09) Sodium 137 (135-145) mmol/L Potassium 4.0 (3.5-5.0) mmol/L Chloride 104 (101-111) mmol/L Carbon Dioxide 26 (22-32) mmol/L Anion Gap 7 (2-11) mmol/L BUN 8 (6-24) mg/dL Creatinine 0.68 (0.51-0.95) mg/dL Est GFR ( Amer) 113.7 (>60) Est GFR (Non-Af Amer) 94.0 (>60) BUN/Creatinine Ratio 11.8 (8-20) Glucose 102 H (70-100) mg/dL Calcium 9.5 (8.6-10.3) mg/dL Total Bilirubin 0.50 (0.2-1.0) mg/dL AST 15 (13-39) U/L ALT 8 (7-52) U/L Alkaline Phosphatase 112 H (34-104) U/L Troponin I 0.00 (<0.04) ng/mL Total Protein 7.1 (6.4-8.9) g/dL Albumin 4.1 (3.2-5.2) g/dL Globulin 3.0 (2-4) g/dL Albumin/Globulin Ratio 1.4 (1-3) Result Diagrams: 10/07/18 13:27 10/07/18 13:27 Lab Statement: Any lab studies that have been ordered have been reviewed, and results considered in the medical decision making process. - Radiology CXR Radiology Interpretation Completed By: ED Physician Summary of Radiographic Findings: No acute findings. Pending offical review. - EKG 1308 Cardiac Rate: NL - 78 BPM EKG Rhythm: Sinus Rhythm - [address] Segment: Normal Ectopy: None Summary of EKG Findings: Normal sinus rhythm at 64 bpm, normal OR, normal QRS, normal QTc, normal axis, normal ST, normal T-waves, normal EKG. Interpreted by Dr. Flores at 1308 10/07/17. Re-Evaluation - Re-Evaluation First Eval Re-Evaluation Time: 19:47 Change: Improved Comment: Pt stated that the ASA and APAP was aiding in making her feel better. Chest Pain Course/Dx - Course Course Of Treatment: This pt is a 43 y/o F that is presenting to [facility] with a CC of left anterior CP that radiates into her L axillary starting Friday. She usually takes anxiety medication when she has CP but the medication has been unhelpful. She rates the pain as a 6-7/10 and is described as a griping pressure. Upon her PE she has mild chronic mottling in her lower extremities. She had an EKG that showed a normal sinus rhythm at 64 bpm, normal OR, normal QRS, normal QTc, normal axis, normal ST, normal T-waves, normal EKG. She received the following medications during her ED course: APAP 650 mg, ASA 324 mg , Nitro .4mg SL. She received a CXR that found no acute findings. Troponins were negative x3. She did not improve with nitro, but improved after administration of Tylenol and ASA. She will be discharged with Chest pain and instructed to follow up with her PCP and return to the ED with any new or worsening symptoms. - Diagnoses Provider Diagnoses: Chest pain Discharge - Sign-Out/Discharge Documenting (check all that apply): Patient Departure - discharge Patient Received Moderate/Deep Sedation with Procedure: No - Discharge Plan Condition: Stable Disposition: HOME Patient Education Materials: Chest Pain (ED) Print Language: LITHUANIAN Referrals: Toyin Cox MD [Primary Care Provider] - - Billing Disposition and Condition Condition: STABLE Disposition: Home - Attestation Statements Document Initiated by Krystal: Yes Documenting Scribe: Case Long Provider For Whom Krystal is Documenting (Include Credential): Abigail Vang MD Scribe Attestation: Case Greer scribed for Abigail Flores MD on 10/07/18 at 5960. Scribe Documentation Reviewed: Yes Provider Attestation: The documentation as recorded by the Case austin accurately reflects the service I personally performed and the decisions made by me, Abigail Flores MD Status of Scribe Document: Viewed
[2018-10-07 20:31] VITALS: BP 106/64
== END 2018-10-07 20:34 | disposition home or self-care (01) ==
LOC: ED 12:59
DX: R07.9 Chest pain, unspecified (principal); F17.210 Nicotine dependence, cigarettes, uncomplicated; Z79.899 Other long term (current) drug therapy
CPT/HCPCS: 36415; 71046; 80053; 84484; 85025; 85610; 93005; 99284; A9270-GY